=== PATIENT | male | born 2000 | race Two or more races ===

== ENCOUNTER 2025-04-12 11:25 | Emergency (ER) | payer OTHER ==
[~2025-04-12] VITALS: Ht 170.2 cm; Wt 61.2 kg
[2025-04-12 12:10] VITALS: BP 101/66; O2SAT 98
[2025-04-12] MEDS ORDERED: 0.9 % SODIUM CHLORIDE 1,000 ML IV STA (12:34)
[2025-04-12] MEDS ORDERED: METOCLOPRAMIDE HCL 5 MG/ML VIAL IM STA (12:35)
[2025-04-12] MEDS ORDERED: KETOROLAC TROMETHAMINE 60 MG VIAL IM STA (12:35)
[2025-04-12] MEDS ORDERED: FAMOtidine 10 MG/ML (4ML VIAL) IV PUSH STA (12:36)
[2025-04-12] MEDS ORDERED: METOCLOPRAMIDE HCL 5 MG/ML VIAL ONE (12:42)
[2025-04-12] MEDS ORDERED: KETOROLAC TROMETHAMINE 60 MG VIAL IM ONE (12:42)
[2025-04-12] MEDS ORDERED: FAMOTIDINE/PF 20 MG/2 ML VIAL ONE (12:43)
[2025-04-12 12:51] LABS: BASO % 0.6 % (0.1-1.2); EOS # 0.03 (0.04-0.54); EOS % 0.4 % (0.7-7.0); HEMATOCRIT 48.4 % (40.1-51.0); HEMOGLOBIN 17.2 g/dL (13.7-17.5); LYMPH # 1.42 (1.18-3.74); LYMPH % 20.1 % (19.3-53.1); MEAN CORPUSCULAR HEMOGLOBIN 27.1 pg (25.6-32.2); MONO # 0.43 (0.24-0.82); MONO % 6.1 % (4.7-12.5); NEUT # 5.12 (1.56-6.13); NEUT % 72.2 % (34.0-71.1); PLATELET COUNT 238 K/uL (163-369); RED BLOOD COUNT 6.34 M/uL (4.63-6.08); RED CELL DISTRIBUTION WIDTH 13.8 % (11.6-14.4)
[2025-04-12 14:30] LABS: CREATININE SERUM 0.94 mg/dL (0.70-1.30); GFR 100.35; POTASSIUM 4.42 mEq/L (3.5-5.1)
== END 2025-04-12 14:57 | disposition home or self-care (01) ==
LOC: ER 11:34
DX: K52.89 Other specified noninfective gastroenteritis and colitis (principal)